=== PATIENT | female | born 1985 | race Caucasian/White ===

== ENCOUNTER 2016-11-01 15:26 | Inpatient (IN) | payer BC ==
[~2016-11-01] VITALS: Ht 177.8 cm; Wt 76.5 kg
[~2016-11-01 15:26] MED LIST: MOTRIN 600600 MG/TAB PO; PRENATAL1 TA1 PO; SENOKOT S 50 MG1 TAB PO
[2016-12-04] VITALS (36 sets, daily range): BP systolic 96–1015; BP diastolic 52–80; PULSE 59–88; TEMP 97.8–98.5
[2016-12-04] MEDS ORDERED: PROFERRIN ES12 MG PO (07:39)
[2016-12-04 08:31] LABS: BASO # 0.1 (0.0-0.2); BASO % 0.6 % (0.0-2.0); EOS # 0.1 (0.0-0.7); EOS % 0.6 % (0-4.0); GRAN # 9.5 (1.4-6.5); GRAN % 75.3 % (42.2-75.2); HEMOGLOBIN 12.6 g/dl (12.5-16.0); LYMPH # 2.2 (1.2-3.4); LYMPH % 17.6 % (20.0-51.0); MEAN CELL VOLUME 89 fl (80.0-100.0); MEAN CORPUSCULAR HEMOGLOBIN 33 pg (27.0-31.0); MEAN CORPUSCULAR HGB CONC 37 g/dl (33.0-37.0); MEAN PLATELET VOLUME 10.9 fl (7.4-10.4); MONO # 0.6 (0.1-0.6); MONO % 4.8 % (1.7-9.3); PLATELET COUNT 230 K/mm3 (130-400); RED BLOOD COUNT 3.86 M/mm3 (4.10-5.30); REDCELL DISTRIBUTION WIDTH-CV 13.1 % (11.5-14.5); WHITE BLOOD COUNT 12.6 K/mm3 (4.8-10.8)
[2016-12-04 08:51] LABS: HEMATOCRIT 34.4 % (37.0-47.0)
[2016-12-05 02:45] VITALS: BP 100/77; PULSE 63; TEMP 97.6
[2016-12-05 07:23] VITALS: BP 109/69; PULSE 82; TEMP 98
[2016-12-05 15:30] VITALS: BP 102/74; PULSE 72; TEMP 98.4
[2016-12-05 21:30] VITALS: BP 104/74; PULSE 68; TEMP 97.8
[2016-12-06 07:00] VITALS: BP 119/79; PULSE 69; TEMP 97.5
[2016-12-06] MEDS ORDERED: IBU800 M1 PO (08:54)
[2016-12-06] MEDS ORDERED: PERCOCET 325 MG1 TA2 PO (08:55)
== END 2016-12-06 10:30 | disposition home or self-care (01) | DRG 775 ==
LOC: EDSTATUS 11-25 06:25 → LDRO 11-25 15:25 → LDR 12-04 06:26 → OB 12-04 06:54 → LDR 12-04 06:54 → OB 12-04 16:00
PROVIDERS: Obstetrics & Gynecology
PROC: 10E0XZZ Delivery of Products of Conception, External Approach (ICD-10-PCS; principal; 2016-12-04)
PROC: 0KQM0ZZ Repair Perineum Muscle, Open Approach (ICD-10-PCS; 2016-12-04)
PROC: 3E033VJ Introduction of Other Hormone into Peripheral Vein, Percutaneous Approach (ICD-10-PCS; 2016-12-04)
DX: O48.0 Post-term pregnancy (principal); O70.1 Second degree perineal laceration during delivery; O99.824 Streptococcus B carrier state complicating childbirth; O77.0 Labor and delivery complicated by meconium in amniotic fluid; Z3A.41 41 weeks gestation of pregnancy; Z37.0 Single live birth
CPT/HCPCS: J2540; J2590; J7120